=== PATIENT | female | born 2000 | race Caucasian/White ===

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

== ENCOUNTER 2023-01-31 14:51 | Outpatient (REF) | payer MEDICAID, SELFPAY ==
[2023-02-01 08:27] LABS: Syphilis Screen Nonreactive (Nonreactive)
[2023-02-01 08:43] LABS: ~HepC Num1 0.16 S/CO (0.00-0.79); ~Hepatitis C Antibody Nonreactive (Nonreactive)
[2023-02-01 08:45] LABS: HIV AB/AG Nonreactive (Nonreactive); HIV Num 1 0.06 S/CO (0.00-0.99)
== END 2023-01-31 14:52 | disposition home or self-care (01) ==
LOC: HO.HHCL 14:51
PROVIDERS: Visit Provider Advanced Practice Midwife
DX: Z11.4 Encounter for screening for human immunodeficiency virus [HIV] (principal); Z11.3 Encounter for screening for infections with a predominantly sexual mode of transmission
CPT/HCPCS: 36415; 86780; 86803; 87389

== ENCOUNTER 2023-07-17 13:52 | Outpatient (REF) | payer MEDICAID, SELFPAY | END 2023-07-17 13:53 | disposition home or self-care (01) | LOC: HO.HHCLNP 13:52 | PROVIDERS: Visit Provider Advanced Practice Midwife | DX: Z01.419 Encounter for gynecological examination (general) (routine) without abnormal findings (principal); Z11.3 Encounter for screening for infections with a predominantly sexual mode of transmission | CPT/HCPCS: 36415; 87491; 87591; 87661; 88142 ==

== ENCOUNTER 2023-10-14 08:32 | Outpatient (REF) | payer MEDICAID, SELFPAY ==
[2023-10-14 11:18] LABS: MANUAL DIFF FLAG NO
[2023-10-14 11:24] LABS: Basophils Percent Auto 0.4 % (0-2); Eosinophils Absolute Auto 0.4 X10*3/uL (0.0-0.4); Eosinophils Percent Auto 7.5 % (0-4); Hematocrit 37.4 % (37.0-47.0); Imm Gran Abs Auto 0.01 X10*3/uL (0.00-0.03); Imm Gran Pct Auto 0.2 % (0.0-0.4); Lymphocytes Absolute Auto 2.1 X10*3/uL (1.2-4.9); Lymphocytes Percent Auto 38.1 % (20-40); Mean Corpuscular HGB Conc 32.1 g/dl (31.0-35.0); Mean Corpuscular Hemoglobin 27.1 pg (27.0-33.0); Mean Corpuscular Volume 84.6 fL (80.0-98.0); Mean Platelet Volume 9.1 fL (9.4-12.3); Monocytes Absolute Auto 0.5 X10*3/uL (0.1-1.2); Monocytes Percent Auto 9.4 % (2-11); Neutrophils Absolute Auto 2.5 x10*3/uL (2.0-8.3); Neutrophils Percent Auto 44.4 % (45-73); Platelet Count 352 X10*3/uL (160-400); Red Blood Count 4.42 X10*6/uL (4.20-5.50); Red Cell Distribution Width 13.2 % (11.0-16.0); White Blood Count 5.6 X10*3/uL (4.8-10.8)
[2023-10-14 11:35] LABS: Estimated Average Glucose 111 mg/dL; Hemoglobin A1c % 5.5 % (<6.0)
[2023-10-14 11:54] LABS: Anion Gap 11 (12-20); Blood Urea Nitrogen 11 mg/dL (9-16); Calcium 9.1 mg/dL (8.4-10.2); Carbon Dioxide 25 mmol/L (22-29); Chloride 109 mmol/L (96-108); Cholesterol 172 mg/dL (<200); Estimated Glomerular Filt Rate > 60; Glucose Random 96 mg/dL (60-115); HDL Cholesterol 42 mg/dL (>40); LDL Cholesterol Calculated 116 mg/dL (<100); Potassium 4.1 mmol/L (3.3-5.1); Sodium 141 mmol/L (135-145); Triglycerides 70 mg/dL (<150)
[2023-10-14 11:58] LABS: TSH reflex Free T4 0.97 uIU/mL (0.32-4.0)
== END 2023-10-14 08:33 | disposition home or self-care (01) ==
LOC: HO.HHCL 08:32
PROVIDERS: Visit Provider Nurse Practitioner
DX: E66.09 Other obesity due to excess calories (principal); Z86.2 Personal history of diseases of the blood and blood-forming organs and certain disorders involving the immune mechanism; Z68.37 Body mass index [BMI] 37.0-37.9, adult
CPT/HCPCS: 36415; 80048; 80061; 83036; 84443; 85025

== ENCOUNTER 2023-12-15 16:20 | Emergency (ER) | payer MEDICAID, SELFPAY ==
--- NOTE | ~2023-12-15 | XR_ITS ---
EXAMINATION: XR LUMBOSACRAL SPINE CLINICAL INFORMATION: Low back pain COMPARISON: None available. TECHNIQUE: Three views of the lumbosacral spine. FINDINGS: Vertebral bodies are well aligned and intervertebral discs are preserved. There is mild dextroscoliosis of lumbar spine pedicles are preserved. Sacroiliac joints are unremarkable. Soft tissues are normal. XR/XR lumbar spine 2-3V IMPRESSION: Mild dextroscoliosis
[2023-12-15 17:05] VITALS: BP 142/85; PULSE 94; RESP 18; TEMP 36.4; O2SAT 95; BMI 39.1
--- NOTE | 2023-12-15 17:15 | ED.GENADULT ---
HPI - General Adult General Chief complaint: Back Pain/Injury Stated complaint: back pain runs down the right leg Time Seen by Provider: 12/16/23 00:22 Source: patient Mode of arrival: ambulatory Limitations: no limitations History of Present Illness ED Provider: Doug Castro NP HPI narrative: Patient is a 23-year-old female presenting to the emergency department with complaint of lower back pain radiating down right leg for the past 3 days. Reports history of similar pain in the past and was seen at [facility] but states she did not have any imaging at that time. She denies any recent falls or other trauma. Does report that she lifts heavy items for work at [employer]. Denies any weakness, numbness, tingling. Denies any saddle anesthesia or bowel or bladder incontinence. Denies fevers. Denies any urinary symptoms. complaint: back pain Onset (ago): day(s) Location: back Radiation: extremity Severity: severe Quality: burning Pain Consistency: constant Relieving factors: none Treatments prior to arrival: NSAID and other (Tylenol) Related Data Previous Rx's ?Medication ?Instructions ?Recorded cyclobenzaprine 5 mg tablet 5 mg PO TID PRN muscle spasm #10 12/16/23 tabs lidocaine 5 % topical patch 1 patch topical DAILY #15 ea 12/16/23 prednisone 20 mg tablet 40 mg (2 x 20 mg) PO DAILY #10 tabs 12/16/23 Allergies Allergy/AdvReac Type Severity Reaction Status Date / Time No Known Allergies Allergy Verified 12/15/23 17:06 [No Known Allergies*] Review of Systems Review of Systems: As per HPI. Yes all other systems are reviewed and are negative Constitutional: Constitutional: Reports as per HPI [facility] Social History Social History (System 07/18/23 @ 11:32 by Aliyah Motta) Smoked in Last 30 Days: No Use of substances other than those prescribed or required for medical reasons: No Advance Directives: No Advance Directives Information Provided: No Physical Exam ED Vital Signs: Vital Signs - 24 hr 12/15/23 17:05 12/16/23 00:31 12/16/23 00:53 Temperature 97.5 F 97.8 F 97.8 F Pulse Rate 94 72 72 Respiratory Rate 18 16 16 Blood Pressure 142/85 H 158/99 H 158/99 H Pulse Oximetry 95 97 97 Oxygen Delivery Method Room Air Room Air Room Air BMI result Body Mass Index 39.1 Vital signs have been reviewed and appear to be correct. Blood pressure normal. Heart rate normal. Respiratory rate normal. Temperature normal. Oxygen saturation normal. Const General: cooperative, healthy appearing and no acute distress Orientation/consciousness: oriented to person, oriented to place, oriented to time and patient oriented x3 Limitations: no limitations HENMT Head: Yes normocephalic and Yes atraumatic Ears: external ears normal General nose exam: Normal external nose present Face and sinus: Yes face symmetric Mouth: oropharynx normal and moist mucous membranes Throat: Yes uvula midline Eyes Pupils: Equal, round and reactive pupils present Neck Neck: Yes normal visual inspection, Yes no meningeal signs and Yes supple Resp Effort & Inspection: normal respiratory effort and able to speak in complete sentences Auscultation: clear to auscultation bilaterally Cardio Rate: regular rate Rhythm: regular rhythm Heart sounds: S1 normal heart sound present and S2 normal heart sound present GI Palpation (GI): Soft to palpation and nontender Auscultation: normoactive bowel sounds General: Yes no CVA tenderness Back/Spine/Pelvis Back: no CVA tenderness Thoracic/Lumbar Spine: thoracic and lumbar spine normal to inspection, thoraco-lumbar ROM normal, straight leg raise negative bilaterally, pain with thoraco-lumbar ROM, paraspinal muscle tenderness on the right in the upper lumbar and in the mid lumbar, No thoracic spinal tenderness and No lumbar spinal tenderness Skin General skin exam: elasticity normal and turgor normal Neuro General: oriented to person, oriented to place, oriented to time, patient oriented x3, gait normal, tone normal, moves all extremities, Normal light touch and pain sensation, no meningeal signs, no focal motor deficits, CN's II-XI intact bilaterally and deep tendon reflexes 2+ bilaterally Cranial nerves: Yes Equal, round and reactive pupils present Cognition (Neuro): normal cognition Extrem General: Yes full ROM, Yes no pedal edema and Yes no calf tenderness Right lower extremity: normal to inspection, full ROM and normal capillary refill Left lower extremity: normal to inspection, full ROM and normal capillary refill Psych Mental Status: mental status grossly normal Affect: normal affect Thought process: Normal thought process present Course Course Course Narrative: RME: Done by STEPHANIE Hall 23 yold female presents to ED for for low back pain radiating down right back. Patient denies any flank pain, nausea, vomiting, fever, chills or any genitourinary symptoms. Patient states no trauma. X-ray ordered Medications Administered Discontinued Medications Generic Name Dose Route Start Last Admin Trade Name Mary Jo PRN Reason Stop Dose Admin Cyclobenzaprine HCl 10 mg 12/16/23 00:38 12/16/23 00:47 Cyclobenzaprine Hcl 10 Mg Tablet PO 12/16/23 00:39 10 mg ONCE ONE Administration Prednisone 40 mg 12/16/23 00:38 12/16/23 00:47 Prednisone 20 Mg Tablet PO 12/16/23 00:39 40 mg ONCE ONE Administration Medical Decision Making Medical Decision Making MDM Narrative: Patient is a 23-year-old female presenting to the emergency department with complaint of lower back pain radiating down right leg for the past 3 days. On exam patient is awake, A+Ox3, VS WNL, afebrile, normal neurological exam without focal deficits, physical exam findings as above. Given reported symptoms and physical exam findings, initial differential includes lumbar strain, lumbar radiculopathy, disc herniation, spinal stenosis, spondylosis. Less likely vertebral fracture. Do not suspect malignancy/mass, SEA, cauda equina/cord compression. X-ray notable for mild dextroscoliosis. My interpretation is in agreement with the radiologist's interpretation. Will treat for lumbar radiculopathy with short course of prednisone, cyclobenzaprine, lidocaine patches. Advised patient to continue alternating Tylenol and ibuprofen. Patient reports she has follow-up appointment with PCP on Saturday. Return precautions discussed at bedside. Patient verbalized understanding of and agreement with plan. Differential Diagnosis Differential Diagnoses: The differential diagnosis associated with the presentation includes As per MDM. Independent Interpretation I performed an independent interpretation of an: Plain X-Ray Interpretation: Mild dextrscoliosis Radiology Impression Discussion of test interpretation with radiology: I have reviewed the radiologist's reading. Radiologist Impression: XR/XR lumbar spine 2-3V IMPRESSION: Mild dextroscoliosis External Record Review External record reviewed: Inpatient record, Office record and Outpatient record Prescription Management I considered prescription management with: Pain Medication and Other Discharge Plan Discharge Clinical Impression: Lumbar radiculopathy Patient Disposition: Home, Self-Care Instructions: Lumbar Radiculopathy (ED) Additional Instructions: You were evaluated in the emergency department today for back pain. Your evaluation did not show signs of medical conditions requiring emergent intervention at this time. We recommended that you use ibuprofen or Tylenol per package directions every 6 hours as needed for pain. If necessary, you can alternate these medications so that you take one medication every 3 hours. For instance, at noon take ibuprofen, then at 3:00 p.m. take Tylenol, then at 6:00 p.m. take ibuprofen. You have been prescribed prednisone which is a steroid to decrease inflammation. You have been prescribed a muscle relaxer which you may take every 8 hours as needed for spasms. You have been prescribed 5% topical lidocaine patches which you can wear for up to 12 hours in a 24 hour period. Do not apply heat directly over the patches. Please schedule an appointment for follow-up with your primary care physician this week for further evaluation of your symptoms. Return to the emergency department if you experience worsening back pain, difficulty walking, fevers, numbness, tingling, incontinence, groin numbness or tingling, or any other concerning symptoms. Prescriptions: New cyclobenzaprine 5 mg tablet 5 mg PO TID PRN (Reason: muscle spasm) Qty: 10 0RF prednisone 20 mg tablet 40 mg PO DAILY Qty: 10 0RF lidocaine 5 % adhesive patch,medicated 1 patch topical DAILY Qty: 15 0RF Rx Instructions: leave on most painful area for up to 12 hrs Stand Alone Forms: Work/School Release Interventions: ED Discharge Assessment Last Done: 12/16/23 00:53 Discharge Date/Time: 12/16/23 00:54 Print Language: Moldovan
[2023-12-16 00:31] VITALS: BP 158/99; PULSE 72; RESP 16; TEMP 36.6; O2SAT 97
[2023-12-16] MEDS: predniSONE 20 MG TABLET 40 MG PO (00:47)
[2023-12-16] MEDS: Cyclobenzaprine HCl 10 MG TABLET PO (00:47)
[2023-12-16 00:53] VITALS: BP 158/99; PULSE 72; RESP 16; TEMP 36.6; O2SAT 97
== END 2023-12-16 00:54 | disposition home or self-care (01) ==
PROVIDERS: Emergency Provider Emergency Medicine; PCP Pediatrics
DX: M54.16 Radiculopathy, lumbar region (principal); M54.50 Low back pain, unspecified
CPT/HCPCS: 72100; 99283; 99284

== ENCOUNTER 2023-12-19 06:05 | Emergency (ER) | payer MEDICAID, SELFPAY ==
[2023-12-19 06:08] VITALS: BP 140/96; PULSE 96; RESP 20; TEMP 36.1; O2SAT 100; BMI 36.5
--- NOTE | 2023-12-19 07:54 | ED_ITS ---
HPI - Back Pain/Injury General Chief Complaint: Back Pain/Injury Stated Complaint: back pain Time Seen by Provider: 12/19/23 07:15 Source: patient Mode of arrival: ambulatory Limitations: no limitations History of Present Illness ED Provider: Dr. Todd Christiansen HPI Narrative: 23 year old female works at [employer] does lift heavy items seen here a few days ago for back pain sent home on cyclobenzaprine prednisone lidocaine comes back complaining of continued back pain denies any falls or injuries she has no neurosurgical symptoms she has not lost control bowel or bladder she has no back pain red flags. Mom states she called her PCP who told her to come to the ER for pain control. I explained we don't typically don't oupatient pain control explaining the [employer] and concerns of getting prescriptions from multiple prescribers and the side effects. I will give her dose of morphine here with toradol and tylenol. Explained to avoid driving and to only use the cyclobenzaprine at night. Related Data Previous Rx's ?Medication ?Instructions ?Recorded cyclobenzaprine 5 mg tablet 5 mg PO TID PRN muscle spasm #10 12/16/23 tabs lidocaine 5 % topical patch 1 patch topical DAILY #15 ea 12/16/23 prednisone 20 mg tablet 40 mg (2 x 20 mg) PO DAILY #10 tabs 12/16/23 indomethacin 25 mg capsule 25 mg PO BID back pain #60 caps 12/19/23 Allergies Allergy/AdvReac Type Severity Reaction Status Date / Time No Known Allergies Allergy Verified 12/19/23 06:09 [No Known Allergies*] Review of Systems Review of Systems: Review of systems: General: Patient denies any fever chills recent illness or falls Musculoskeletal: back pain denies body aches or other injuries HEENT: denies headache, runny nose, ear pain Respiratory: denies shortness of breath, cough Cardiovascular: no chest pain or palpitations : denies dysuria, frequency Abdomen: no nausea vomiting denies abdominal pain Extremities: no swelling, no pain Skin: no diaphoresis Yes all other systems are reviewed and are negative Physical Exam Vital Signs: Vital Signs: Last Vital Signs Temp 97 F 12/19/23 06:08 Pulse 96 12/19/23 06:08 Resp 20 12/19/23 06:08 BP 140/96 H 12/19/23 06:08 Pulse Ox 100 12/19/23 06:08 O2 Del Method Room Air 12/19/23 06:08 BMI result Body Mass Index 36.5 Neurological exam: CN II- XII tested. Patient is alert and oriented to person place and time. Patient has no dysphagia or dysarthia, denies good vision in all four vision rodriguez no nystagmus on exam, good strength to upper and lower extremities with normal reflexes to brachioradialis, wrist, patella and achilles. Negative romberg, good finger to nose and heel to mcclellan. General: Well-appearing well-nourished in no signs of distress HEENT: Normocephalic atraumatic Neck: No signs of JVD, no masses no tenderness or lymphadenopathy Cardiovascular: Regular rate and rhythm Respiratory: Clear to auscultation bilaterally Abdomen: Soft nontender no masses Extremities: Normal pedal pulses no signs of edema Skin: Dry warm no rashes Back: No tenderness full ROM Medical Decision Making Medical Decision Making MDM Narrative: Patient has normal pulses normal strength and reflexes she looks otherwise well I do not think she needs neuroimaging at this time I do think it is safe for her to home continue prednisone I will give her a work note and have her follow up with her primary care doctor. Differential Diagnosis Differential Diagnoses: The differential diagnosis associated with the presentation includes Eye pain back strain lumbar radiculopathy Admission/Observation Consideration of admission/observation: Escalation of care including admission/observation considered Discharge Plan Discharge Clinical Impression: Lumbar radiculopathy Patient Disposition: Home, Self-Care Instructions: Lumbar Radiculopathy (ED), Lower Back Exercises (ED) Additional Instructions: You were seen in the ER for back pain You have a normal exam and were shown some exercises to help with your pain. You can also try the indomethacin that was prescribed for pain. You were given morphine, toradal and tylenol here as well for pain. Please call to follow up with your doctor. Prescriptions: New indomethacin 25 mg capsule 25 mg PO BID Qty: 60 0RF Rx Instructions: administer with food or milk can take 1 to 2 tabs No Action cyclobenzaprine 5 mg tablet 5 mg PO TID PRN (Reason: muscle spasm) Qty: 10 0RF prednisone 20 mg tablet 40 mg PO DAILY Qty: 10 0RF lidocaine 5 % adhesive patch,medicated 1 patch topical DAILY Qty: 15 0RF Rx Instructions: leave on most painful area for up to 12 hrs Stand Alone Forms: Work/School Release Print Language: Nigerian
--- NOTE | 2023-12-19 08:03 | PC.NURSE ---
Pt reports lower back pain since July, worsening. Reports she has hx of scoliosis. Pain is 10/10, aching and spasms, radiates down right leg. Pt denies fall or recent injuries. Reports she was here Saturday for same complaints and pain was not relieved by meds she got. Alert and oriented, breathing even and unlabored, skin warm and dry. Pt restless, reports standing improves the pain.
[2023-12-19] MEDS: Morphine Sulfate Immed Release 15 MG TABLET PO (08:10)
[2023-12-19 08:12] VITALS: BP 133/85; PULSE 94; RESP 16; TEMP 37.2; O2SAT 99
[2023-12-19] MEDS: Acetaminophen 325 MG TABLET 650 MG PO (08:14)
[2023-12-19] MEDS: Ketorolac Tromethamine 30 MG/ML VIAL 15 MG IM (08:15)
[2023-12-19 08:57] VITALS: BP 133/85; PULSE 94; RESP 16; TEMP 37.2; O2SAT 99
== END 2023-12-19 08:58 | disposition home or self-care (01) ==
PROVIDERS: Emergency Provider Student in an Organized Health Care Education/Training Program; PCP Pediatrics
DX: M54.16 Radiculopathy, lumbar region (principal); Z79.899 Other long term (current) drug therapy
CPT/HCPCS: 96372; 99284; J1885

== ENCOUNTER 2024-02-05 12:00 | Outpatient (REF) | payer MEDICAID, SELFPAY ==
[2024-02-05 13:21] LABS: MANUAL DIFF FLAG NO
[2024-02-05 13:26] LABS: Basophils Percent Auto 0.2 % (0-2); Eosinophils Absolute Auto 0.4 X10*3/uL (0.0-0.4); Eosinophils Percent Auto 5.3 % (0-4); Hematocrit 40.7 % (37.0-47.0); Hemoglobin 13.5 g/dl (12.0-16.0); Imm Gran Abs Auto 0.02 X10*3/uL (0.00-0.03); Imm Gran Pct Auto 0.2 % (0.0-0.4); Lymphocytes Percent Auto 24.3 % (20-40); Mean Corpuscular HGB Conc 33.2 g/dl (31.0-35.0); Mean Corpuscular Hemoglobin 27.9 pg (27.0-33.0); Mean Corpuscular Volume 84.1 fL (80.0-98.0); Mean Platelet Volume 9.2 fL (9.4-12.3); Monocytes Absolute Auto 0.5 X10*3/uL (0.1-1.2); Monocytes Percent Auto 5.7 % (2-11); Neutrophils Absolute Auto 5.2 x10*3/uL (2.0-8.3); Neutrophils Percent Auto 64.3 % (45-73); Platelet Count 420 X10*3/uL (160-400); Red Blood Count 4.84 X10*6/uL (4.20-5.50); Red Cell Distribution Width 13.7 % (11.0-16.0); White Blood Count 8.1 X10*3/uL (4.8-10.8)
[2024-02-05 13:45] LABS: INTERNATIONAL NORM RATIO 0.9 (0.9-1.1); Prothrombin Time 11.3 SEC (11.1-13.3)
[2024-02-05 13:46] LABS: Alanine Aminotransferase 24 U/L (0-31); Albumin Level 4.1 g/dL (3.5-5.0); Alkaline Phosphatase 73 U/L (39-117); Aspartate Amino Transferase 21 U/L (5-31); Bilirubin Direct < 0.2 mg/dL (0.0-0.5); Bilirubin Total 0.2 mg/dL (0.0-1.0); Total Protein 8.2 g/dL (6.5-8.0)
[2024-02-05 13:48] LABS: Partial Thromboplastin Time 31.3 SEC (26.0-36.8)
== END 2024-02-05 12:01 | disposition home or self-care (01) ==
LOC: HO.HHCL 12:00
PROVIDERS: Visit Provider Nurse Practitioner
DX: R23.3 Spontaneous ecchymoses (principal); E28.2 Polycystic ovarian syndrome
CPT/HCPCS: 36415; 80076; 85025; 85610; 85730

== ENCOUNTER 2024-02-28 10:51 | Outpatient (REF) | payer MEDICAID, SELFPAY ==
--- NOTE | ~2024-02-28 | US_ITS ---
EXAMINATION: US PELVIC COMPLETE WITH TV CLINICAL INFORMATION: Dysmenorrhea COMPARISON: None available. TECHNIQUE: Real-time transabdominal and transvaginal ultrasound scanning. FINDINGS: Transabdominal and transvaginal ultrasound examination of the pelvis were performed. Uterus: Anteverted; measuring 6.8 cm in length, 3.3 cm in AP diameter and 4.5 cm in width. Uterine cervix measures 3.4 cm in length. Echotexture: normal sonographic appearance. Nabothian cysts are seen in the uterine cervix. Endometrial Thickness: 0.8 cm. Right ovary: 3.2 x 1.6 x 1.4 cm (SAG x AP x TRV), calculated volume of 3.8 mL, with normal echotexture. Left ovary: 3.9 x 1.9 x 2.0 cm (SAG x AP x TRV), calculated volume of 7.8 mL, with normal echotexture. No free fluid is present. Limited view of the urinary bladder shows no abnormality. US/US pelvic and transvaginal IMPRESSION: 1. Limited pelvic ultrasound examination due to patient's body habitus. 2. Normal sonographic appearance of uterus. 3. Normal sonographic appearance of bilateral ovaries. 4. No abnormal pelvic fluid collection is seen. Electronically signed by: Michael Hernandez MD 03/06/2024 09:56 AM EDT
== END 2024-02-28 10:52 | disposition home or self-care (01) ==
LOC: HO.US 10:51
PROVIDERS: PCP Nurse Practitioner; Visit Provider Nurse Practitioner
DX: E28.2 Polycystic ovarian syndrome (principal)
CPT/HCPCS: 76830; 76856

== ENCOUNTER 2024-05-01 10:34 | Outpatient (REF) | payer MEDICAID, SELFPAY ==
[2024-05-02 22:39] LABS: Follicle Stimulating Hormone 6.6 mIU/mL; Prolactin 7.9 ng/mL
[2024-05-07 13:23] LABS: Testosterone, Free 9.3 pg/mL (0.1-6.4); Testosterone, Total 62 ng/dL (2-45)
== END 2024-05-01 10:35 | disposition home or self-care (01) ==
LOC: HO.HHCL 10:34
PROVIDERS: Visit Provider Nurse Practitioner
DX: N91.4 Secondary oligomenorrhea (principal)
CPT/HCPCS: 36415; 83001; 83498; 84146; 84402; 84403

== ENCOUNTER 2024-07-11 06:57 | Emergency (ER) | payer MEDICAID, SELFPAY ==
--- NOTE | ~2024-07-11 | XR_ITS ---
CLINICAL HISTORY: cough 2 view chest x-ray Comparison: None Findings: The lungs are clear. Heart size is normal. No acute fracture. IMPRESSION: 1. No acute findings. This document has been electronically signed by: Emiliano Sebastian MD on 07/11/2024 07:32:25
[2024-07-11 07:03] VITALS: BP 125/79; PULSE 99; RESP 20; TEMP 36.3; O2SAT 96; BMI 38.8
--- NOTE | 2024-07-11 07:14 | PC.NURSE ---
Patient reports nasal congestion, cough, and chest tightness since . Stats mother has also been sick with bronchitis
[2024-07-11 07:45] LABS: IDNOW Serial# 58CA691E; Strep A Nucleic Acid Negative (Negative)
--- NOTE | 2024-07-11 08:17 | ED.URI ---
HPI - URI/Sore Throat General Chief Complaint: Upper Respiratory Symptoms Stated Complaint: flu like Time Seen by Provider: 07/11/24 07:33 Source: patient Mode of arrival: ambulatory Limitations: no limitations History of Present Illness ED Provider: Elida Banuelos NP HPI Narrative: Patient is a 24-year-old female who presents emergency department for evaluation of 2 days with cough, intermittent shortness of breath and chest tightness, sore throat. Denies any known sick contacts. Denies fevers, chills, headache, dizziness, neck pain, neck stiffness, nausea, vomiting, abdominal pain, numbness or tingling of the extremities, genitourinary symptoms. Related Data Previous Rx's ?Medication ?Instructions ?Recorded cyclobenzaprine 5 mg tablet 5 mg PO TID PRN muscle spasm #10 12/16/23 tabs lidocaine 5 % topical patch 1 patch topical DAILY #15 ea 12/16/23 prednisone 20 mg tablet 40 mg (2 x 20 mg) PO DAILY #10 tabs 12/16/23 indomethacin 25 mg capsule 25 mg PO BID back pain #60 caps 12/19/23 Allergies Allergy/AdvReac Type Severity Reaction Status Date / Time No Known Allergies Allergy Verified 07/11/24 07:07 [No Known Allergies*] Review of Systems Review of Systems: Yes all other systems are reviewed and are negative PMFSH Past Medical History Attestation statement: The following information was validated with the patient. Source: old records reviewed Social History Social History (System 07/18/23 @ 11:32 by Aliyah Motta) Advance Directives: No Advance Directives Information Provided: Yes Do you have a plan to hurt others: No Plan Physical Exam Vital Signs: Vital Signs: Last Vital Signs Temp 97.3 F 07/11/24 07:03 Pulse 99 07/11/24 07:03 Resp 20 07/11/24 07:03 BP 125/79 07/11/24 07:03 Pulse Ox 96 07/11/24 07:03 O2 Del Method Room Air 07/11/24 07:03 BMI result Body Mass Index 38.8 Appearance: Alert.?Oriented to person, place and time. No acute distress.?Normal affect. Eyes: Pupils equal, round and reactive to light.? ENT: TM normal bilaterally. Pharynx normal.??Uvula midline. No trismus. No drooling. Nasal congestion. Neck: Normal inspection.? Neck supple.??No cervical adenopathy CVS: Heart sounds normal. Normal heart rate and rhythm.? Pulses normal.?? Respiratory: No respiratory distress.? Lung sounds diminished bilaterally? Abdomen: Soft and non-tender. Normoactive bowel sounds. Skin: Skin warm and dry.? Normal skin color.? ? Extremities: No lower extremity edema.? Neuro: Moves all extremities spontaneously. Sensation intact bilaterally. No motor deficits. Ambulates with normal steady gait. Medications Administered Discontinued Medications Generic Name Dose Route Start Last Admin Trade Name Mary Jo PRN Reason Stop Dose Admin Albuterol Sulfate 2 puff 07/11/24 08:24 12 08:45 Albuterol Sulfate 90 Mcg 8 Gm Inhaler INHALE 07/11/24 08:25 2 puff ONCE ONE Administration Medical Decision Making Medical Decision Making [facility] Narrative: Patient is a 24-year-old female, presenting for evaluation of upper respiratory symptoms. COVID-19/influenza/RSV testing is negative. Group a strep testing is negative, exam not consistent with [employer]. On auscultation of her lungs they are diminished bilaterally though this might be in part due to body habitus. However she was given 2 puffs of a albuterol inhaler in the emergency department and felt improvement in the tightness/shortness of breath she has been experiencing. CXR was obtained is without any evidence of pneumonia. I suspect she likely has a viral upper respiratory infection. Wells score negative, unlikely pulmonary embolism, no risk factors for ACS. Well-appearing, nontoxic, afebrile, no tachycardia or tachypnea/hypoxia. Speaking clear full sentences, ambulatory with steady gait. Discussed conservative treatment including rest, hydration, Tylenol/ibuprofen as needed for fever and body aches, saline nasal spray, humidifier, knen-pit-nuvaogp cold medication. Advised to follow-up with primary care provider as needed, discussed reasons to return back to the emergency department. All questions were answered. Patient discharged home in stable condition. Differential Diagnosis Differential Diagnoses: The differential diagnosis associated with the presentation includes ( See narrative above) Admission/Observation Consideration of admission/observation: Escalation of care including admission/observation considered ( see narrative above) Lab Data [facility] Lab Attestation statement: I reviewed the patient's lab results. ( see narrative above) Labs: Lab Results 07/11/24 Range/Units 07:31 Influenza Type A (PCR) NEGATIVE (Negative) Influenza Type B (PCR) NEGATIVE (Negative) RSV RNA Qual (PCR) NEGATIVE (Negative) SARS-CoV-2 RNA (RT-PCR) NEGATIVE (Negative) S. pyogenes GrpA RAKESH Negative (Negative) Independent Interpretation I performed an independent interpretation of an: Plain X-Ray (No consolidation or infiltrate) Radiology Impression Discussion of test interpretation with radiology: I have reviewed the radiologist's reading. Radiologist Impression: Findings: The lungs are clear. Heart size is normal. No acute fracture. IMPRESSION: 1. No acute findings. Independent Historian Clinical information obtained from an independent historian. History obtained from or confirmed by: Parent Prescription Management I considered prescription management with: Pain Medication ( acetaminophen/ibuprofen) and Antibiotic (Suspect viral would defer antibiotics at this time) Discharge Plan Discharge Clinical Impression: Upper respiratory infection Patient Disposition: Home, Self-Care Instructions: Upper Respiratory Infection (ED) Additional Instructions: Be sure to rest, stay well hydrated drinking plenty of fluids, eat small frequent meals. Tylenol/ibuprofen can be used as needed for fever/pain. [id number] cold medications may be helpful as well for symptoms. Saline nasal spray, humidifier may be helpful for nasal congestion. You may return to the emergency department with any new or worsening symptoms or concerns. Follow-up with your primary care provider as needed. Should remain out of school/ work until symptoms have resolved and have been without a fever for 24 hours without the use of Tylenol or ibuprofen. You were given an albuterol inhaler in the emergency department you may take 2 puffs every 4-6 hours as needed for shortness of breath or difficulty breathing. Prescriptions: No Action indomethacin 25 mg capsule 25 mg PO BID Qty: 60 0RF Rx Instructions: administer with food or milk can take 1 to 2 tabs cyclobenzaprine 5 mg tablet 5 mg PO TID PRN (Reason: muscle spasm) Qty: 10 0RF prednisone 20 mg tablet 40 mg PO DAILY Qty: 10 0RF lidocaine 5 % adhesive patch,medicated 1 patch topical DAILY Qty: 15 0RF Rx Instructions: leave on most painful area for up to 12 hrs Referrals: Physician,Unknown J [Primary Care Provider] - Print Language: Sami
[2024-07-11 08:28] LABS: Influenza A PCR NEGATIVE (Negative); Influenza B PCR NEGATIVE (Negative); Resp Syncy Virus RNA Qual PCR NEGATIVE (Negative); SARS COV2 PCR INHOUSE NEGATIVE (Negative)
[2024-07-11] MEDS: Albuterol Sulfate 90 MCG 8 GM INHALER 2 PUFF INHALE (08:45)
[2024-07-11 09:45] VITALS: BP 125/99; PULSE 99; RESP 18; TEMP 36.3; O2SAT 98
== END 2024-07-11 09:46 | disposition home or self-care (01) ==
PROVIDERS: Emergency Provider Emergency Medicine
DX: J06.9 Acute upper respiratory infection, unspecified (principal); J02.9 Acute pharyngitis, unspecified; R05.9 Cough, unspecified; Z03.818 Encounter for observation for suspected exposure to other biological agents ruled out
CPT/HCPCS: 0241U; 71046; 87651; 99283; 99284

== ENCOUNTER → 2024-07-11 07:09 | Outpatient (BNV) | payer MEDICAID, SELFPAY | PROVIDERS: Visit Provider Specialist | DX: R05.9 Cough, unspecified (principal) | CPT/HCPCS: 71046 ==

== ENCOUNTER 2025-02-01 10:33 | Outpatient (REF) | payer MEDICAID, SELFPAY ==
[2025-02-01 11:12] LABS: MANUAL DIFF FLAG NO
[2025-02-01 11:23] LABS: Hematocrit 39.6 % (37.0-47.0); Hemoglobin 12.8 g/dl (12.0-16.0); Imm Gran Abs Auto 0.01 X10*3/uL (0.00-0.03); Imm Gran Pct Auto 0.2 % (0.0-0.4); Lymphocytes Absolute Auto 2.3 X10*3/uL (1.2-4.9); Mean Corpuscular HGB Conc 32.3 g/dl (31.0-35.0); Mean Corpuscular Hemoglobin 28.1 pg (27.0-33.0); Mean Corpuscular Volume 86.8 fL (80.0-98.0); NRBC Abs Auto 0.000 X10*3/uL (0.0-0.012); NRBC Pct Auto 0.0 /100WBC (0.0-0.2); Platelet Count 374 X10*3/uL (160-400); Red Blood Count 4.56 X10*6/uL (4.20-5.50); White Blood Count 6.7 X10*3/uL (4.8-10.8)
[2025-02-01 11:33] LABS: Hemoglobin A1C 129.8911 umol/L; Total Hemoglobin (HGBA1C) 3402.8725 umol/L
--- OUTSIDE RECORDS SUMMARY | 2025-02-01 11:35 | XMS_ITS | Clinical Summary ---
Author Organization [facility] it Address [address] [place] [address] Care Team Providers Care Digital Manager Name Role Phone Unavailable Primary Care Provider Unavailabl e Social History Tobacco Use Types Packs/Day Years Used Date Smoking Tobacco: Never Assessed Comments Unknown Sex and Gender Information Value Date Recorded Sex Assigned at Not on file Legal Sex Female 7:32 PM EST Gender Identity Not on file Sexual Orientation Not on file Plan of Treatment Health Maintenance Due Date Last Done Comments Gonorrhea/Chlamydia Screening 2002 HPV Vaccines (1 - 3-dose series) 2017 Meningococcal B Vaccine (1 o f 2 - Standard) 2018 DTaP,Tdap,and Td Vaccines (1 - Tdap) 2021 Hepatitis B Vaccines (1 of 3 - 19+ 3-dose series) 2021 HIV Screening 06/16/2022 Hepatitis C Screening 06/16/2022 Social Influencers of Health Screening 06/16/2022 Cervical Cancer Screening: P ap Smear 2023 COVID-19 Vaccine (1 - 2023-2 5 season) 2024 Depression Screening 07/15/2024 Influenza Vaccine (#1) 2025 HIB Vaccines Aged Out No longer eligi ble based on patient's age to complete this topic Hepatitis A Vaccines Aged Out No long er eligible based on patient's age to complete this topic IPV Vaccines Aged Out No longer eligi ble based on patient's age to complete this topic MMR Vaccines Aged Out No longer eligi ble based on patient's age to complete this topic Meningococcal ACWY Vaccine Aged Out N o longer eligible based on patient's age to complete this topic Pneumococcal Vaccine: Pediat rics (0 to 5 Years) and At-Risk Patients (6 to 49 Years) Aged Out No longer eligible b ased on patient's age to complete this topic RSV Immunization Patients Un jarocho 20 months Aged Out No longer eligible b ased on patient's age to complete this topic Varicella Vaccines Aged Out No longer eligible based on patient's age to complete this topic
--- OUTSIDE RECORDS SUMMARY | 2025-02-01 11:35 | XMS_ITS | Encounter Summary ---
Author Organization [employer] Address [address] [facility] [address] [place] [address] Care Team Providers Care Seismic Plotter Name Role Phone Dion Lexie ELLER Primary Care Provider [phone] Reason for Visit * Reason Comments Med Refill Encounter Details Date Type Department Care Team (Late st Contact Info) Description 09/08/2023 Refill [facility] [address] [place], [place] [id number] Joanna Pal CNM [address] [place] [address] Dysmenorrhea Social History Tobacco Use Types Packs/Day Years Used Date Smoking Tobacco: Never Smokeless Tobacco: Never Alcohol Use Standard Drinks/Week Comments Never 0 (1 standard drink = 0.6 oz pur e alcohol) Depression Answer Date Recorded Patient Health Questionnaire-9 Score 20 01/03/2023 Housing Stability Answer Date Recorded What is your housing situation today? I have guanaco stoll [address] you li ve. Do you have problems with any of the following? None of the above 2023 Food Insecurity Answer Date Recorded Within the past 12 months, y ou worried that your food would run out before you got money to buy more: Never True 2023 Within the past 12 months,th e food you bought just didn't last and you didn't have enough money to get more: Never True 12/2022 Transportation Answer Date Recorded In the past 12 months, has l ack of transportation kept you from medical appts, meetings, work or from getting things needed for daily living? No 2023 Utilities Answer Date Recorded In the past 12 months, has t he electric, gas, oil or water company threatened to shut off services in your home? No 2023 Depression Answer Date Recorded Patient Health Questionnaire-2 Score 6 01/03/2023 Comments No Sex and Gender Information Value Date Recorded Sex Assigned at Female 05/14/2022 10:19 AM EDT Legal Sex Female 10:19 AM EDT Gender Identity Female 05/14/2022 10:19 AM EDT Sexual Orientation Straight 05/14/2022 10 :19 AM EDT documented as of this encounter Plan of Treatment Upcoming Encounters Date Type Department Care Team (Late st Contact Info) Description 02/26/2025 9:00 AM EDT Telemedicine [facility] [address] [place] [address] Lexie Ashley NP [address] [place] [address] 03/30/2025 3:30 PM EDT Office Visit [facility] [address] [place] [address] Jhoan, Carmen, OD [address] [place] [address] documented as of this encounter Visit Diagnoses Diagnosis Dysmenorrhea documented in this encounter Additional Health Concerns Assessment Noted Time PHQ-9 Depression Total Score: 20 023 11:33 AM EDT documented as of this encounter Care Teams Seismic Plotter Relationship Specialty Start Date End Date Lexie Ashley NP [address] [place] [address] PCP - General Family Medicine 04/19/23 documented as of this encounter
[2025-02-01 11:51] LABS: Anion Gap 10 (12-20); Blood Urea Nitrogen 11 mg/dL (9-16); Calcium 8.7 mg/dL (8.4-10.2); Carbon Dioxide 26 mmol/L (22-29); Chloride 108 mmol/L (96-108); Cholesterol 174 mg/dL (<200); Estimated Glomerular Filt Rate > 60; HDL Cholesterol 41 mg/dL (>40); Potassium 4.4 mmol/L (3.3-5.1); Sodium 140 mmol/L (135-145); Triglycerides 66 mg/dL (<150)
== END 2025-02-01 10:34 | disposition home or self-care (01) ==
LOC: HO.HHCL 10:33
PROVIDERS: PCP Nurse Practitioner; Visit Provider Nurse Practitioner
DX: E66.812 Obesity, class 2 (principal); E66.09 Other obesity due to excess calories; Z68.38 Body mass index [BMI] 38.0-38.9, adult; Z13.9 Encounter for screening, unspecified
CPT/HCPCS: 36415; 80048; 80061; 83036; 85025

== ENCOUNTER 2025-04-03 06:56 | Emergency (ER) | payer MEDICAID, SELFPAY ==
[2025-04-03 07:01] VITALS: BP 129/79; PULSE 96; RESP 18; TEMP 36.6; O2SAT 98; BMI 38.3
--- NOTE | 2025-04-03 07:49 | ED_ITS ---
HPI - URI/Sore Throat General Chief Complaint: Upper Respiratory Symptoms Stated Complaint: flu like Time Seen by Provider: 04/03/25 07:23 Source: patient Mode of arrival: ambulatory Limitations: no limitations History of Present Illness ED Provider: DR. Grant HPI Narrative: 24-year-old female came in for evaluation of upper respiratory symptoms, + nasal discharge, +nasal congestion, sore throat, generalized body ache, sinus pressure, coughing. Related Data Previous Rx's ?Medication ?Instructions ?Recorded cyclobenzaprine 5 mg tablet 5 mg PO TID PRN muscle spa sm #10 12/16/23 tabs lidocaine 5 % topical patch 1 patch topical DAILY #15 ea 12/16/23 prednisone 20 mg tablet 40 mg (2 x 20 mg) PO DAILY # 10 tabs 12/16/23 indomethacin 25 mg capsule 25 mg PO BID back pain #60 caps 12/19/23 azithromycin 250 mg tablet See Rx Instructions PO .COM PLEX #6 04/03/25 (Zithromax Z-Raman) tabs Allergies Allergy/AdvReac Type Severity Reaction Status Date / Time No Known Allergies (No Known Allergy Verified 04/03/25 07:03 Allergies*) Review of Systems Review of Systems: All other systems are reviewed and are negative Constitutional: Reports as per HPI and Reports no additional constitutional complaints Eyes: Reports as per HPI and Reports no additional eye complaints Reports system reviewed and no additional complaints, except as documented Cardiovascular: Reports as per HPI and Reports no additional cardiovascular complaints Respiratory: Reports as per HPI and Reports no additional respiratory complaints Gastrointestinal: Reports as per HPI and Reports no additional gastrointestinal complaints Genitourinary: Reports no additional female genitourinary complaints Musculoskeletal: Reports no additional musculoskeletal complaints Skin/Breast: Reports system reviewed and no additional complaints, except as docu Psychiatric: Reports no additional psychiatric complaints Endocrine: Reports no additional endocrine complaints Hematologic/Lymphatic: Reports no additional hematologic/lymphatic complaints Allergic/Immunologic: Reports no additional allergic/immunologic complaints Reports system reviewed and no additional complaints, except as documented and Reports Abnormal speech present [facility] Social History Social History Do you have a plan to hurt others: No Plan Physical Exam Vital Signs: Vital Signs: Last Vital Signs Temp 97.8 F 04/03/25 07:01 Pulse 96 09/20/25 07:01 Resp 18 04/03/25 07:01 BP 129/79 04/03/25 07:01 Pulse Ox 98 04/03/25 07:01 O2 Del Method Room Air 04/03/25 07:01 BMI result Body Mass Index 38.3 Vital signs have been reviewed and appear to be correct. Blood pressure elevated. Heart rate normal. Respiratory rate normal. Temperature normal. Oxygen saturation normal. Appearance: Alert. Oriented X3. No acute distress. Head: Normal external exam. Normocephalic. Atraumatic. No Serrato signs noted. No raccoon eyes noted Eyes: PERRLA. EOMI. Conjunctiva and sclera normal. Eyelids normal. ENT: TM's Normal. Pharynx normal. Left maxillary sinus tenderness on percussion Moist mucous membranes. No trismus noted. No drooling noted. No muffled voice noted. Neck: Normal inspection. Neck supple. FROM. No adenopathy. Thyroid Normal. No meningeal signs. No neck mass noted. CVS: Normal heart rate and rhythm. Heart sound normal. No murmurs noted. Pulses normal throughout. Respiratory: No respiratory distress. Painless inspiration. Breath sounds normal. No wheezes/rales/rhonchi noted. Chest nontender. No accessory muscle usage noted or decreased air movement noted. Abdomen: Soft and nontender. Bowel sounds normal in all 4 quadrants. No distention noted. No organomegaly noted. No visible injury noted. Back: No CVA tenderness. Full range of motion noted. Skin: Skin warm and dry. Normal skin color. Normal skin turgor. No rashes/lesions/lacerations noted. Extremities: No lower extremity edema. Extremities exhibit normal range of motion. Extremities nontender. Neuro: Oriented X 3. Cranial nerve exam: II-XII are grossly intact No motor deficit. No sensory deficit. Reflexes normal. Course Reevaluation(s) Reevaluation #1: Acute left maxillary sinusitis will start on Z-Raman and follow-up with PCP. Time: 09:00 Medical Decision Making Differential Diagnosis Differential Diagnoses: The differential diagnosis associated with the presentation includes (Upper respiratory infection, acute sinusitis.) Admission/Observation Consideration of admission/observation: Escalation of care including admission/observation considered Lab Data MDM Lab Attestation statement: I reviewed the patient's lab results. Discharge Plan Discharge Clinical Impression: Sinusitis Patient Disposition: Home, Self-Care Instructions: Sinusitis (ED) Prescriptions: New azithromycin [Zithromax Z-Raman] 250 mg tablet See Rx Instructions .ROUTE .COMPLEX Qty: 6 0RF Rx Instructions: For 250 mg dose pack: take 500 mg today (day 1), then 250 mg for 4 days (days 2-5) No Action indomethacin 25 mg capsule 25 mg PO BID Qty: 60 0RF Rx Instructions: administer with food or milk can take 1 to 2 tabs cyclobenzaprine 5 mg tablet 5 mg PO TID PRN (Reason: muscle spasm) Qty: 10 0RF prednisone 20 mg tablet 40 mg PO DAILY Qty: 10 0RF lidocaine 5 % adhesive patch,medicated 1 patch topical DAILY Qty: 15 0RF Rx Instructions: leave on most painful area for up to 12 hrs Print Language: St Helenian
--- OUTSIDE RECORDS SUMMARY | 2025-04-03 08:07 | XMS_ITS | Encounter Summary ---
Author Organization [employer] Address [address] [facility] [address] [place] [address] Care Team Providers Care Contact Assembler Name Role Phone Lexie Ashley NP Primary Care Provider [phone] Encounter Details Date Type Department Care Team ([facility] st Contact Info) Description 02/26/2025 Results Follow-Up [facility] [address] [place] [address] Lexie Ashley NP [address] [place] [address] CBC auto differential, Lipid Panel, Standard, Basic Metabolic Panel, Hemoglobin A1c Social History Tobacco Use Types Packs/Day Years Used Date Smoking Tobacco: Never Smokeless Tobacco: Never Alcohol Use Standard Drinks/Week Comments Never 0 (1 standard drink = 0.6 oz pur e alcohol) Alcohol Answer Date Recorded How often do you have a drink containing alcohol ? 0 01/02/2024 How many drinks containing a lcohol do you have on a typical day when you are drinking? 0 01/02/2024 How often do you have six or more drinks on one occasion? 0 01/02/2024 Depression Answer Date Recorded Patient Health Questionnaire-9 Score 8 09/16/2024 Patient Health Questionnaire-9 Score 8 09/16/2024 Last PHQ-9: Questionnaire Data Not on file 0 09/16/2024 Housing Stability Answer Date Recorded What is [...] Answer Date Recorded Patient Health Questionnaire-2 Score 0 09/16/2024 Internet Access Answer Date Recorded Internet Access Q1 Yes 09/16/2024 Internet Access Q2 Not on file 09/16/2024 Comments No Sex and Gender Information Value Date Recorded Sex Assigned at Female 05/14/2022 10:19 AM EDT Legal Sex Female 10:19 AM EDT Gender Identity Female 05/14/2022 10:19 AM EDT Sexual Orientation Straight 05/14/2022 10 :19 AM EDT documented as of this encounter Plan of Treatment Upcoming Encounters Date Type Department Care Team (Late st Contact Info) Description 07/26/2025 1:00 PM EST Office Visit [facility] OPTOMETRY [address] [place] [address] Carmen Staples, DECLAN [address] [place] [address] documented as of this encounter Visit Diagnoses Not on filedocumented in this encounter Additional Health Concerns Assessment Noted Time PHQ-9 Depression Total Score: 8 09/17/19 25 10:00 AM EST documented as of this encounter Care Teams Contact Assembler Relationship Specialty Start Date End Date Lexie Ashley NP [address] [place] [address] PCP - General Family Medicine 04/19/23 documented as of this encounter
--- OUTSIDE RECORDS SUMMARY | 2025-04-03 08:07 | XMS_ITS | Clinical Summary ---
Author Organization [facility] it Address [address] [place] [address] Care Team Providers Care Job Change Crew Member Name Role Phone Unavailable Primary Care Provider [...] Cervical Cancer Screening: P ap Smear 2023 Depression Screening 07/15/2024 COVID-19 Vaccine (1 - 2023-2 5 season) 2025 Influenza Vaccine (#1) 2025 HIB Vaccines Aged [...]
--- OUTSIDE RECORDS SUMMARY | 2025-04-03 08:07 | XMS_ITS | Encounter Summary ---
Author Organization [employer] Address [address] [facility] [address] [place] [address] Care Team Providers Care Grease Refining Supervisor Name Role Phone Yusefcelina Lexie ELLER Primary Care Provider [phone] Reason for Visit * Reason Comments Med Refill Encounter Details Date Type Department Care Team (Late st Contact Info) Description 09/08/2023 Refill [facility] [address] [place], [place] [phone] Joanna Pal CNM [address] [place] [address] Dysmenorrhea Social History Tobacco Use Types Packs/Day [...] Description 07/26/2025 1:00 PM EST Office Visit [facility] OPTOMET[facility] [address] [place], [place] [phone] Carmen Staples, OD [address] [place] [address] documented as of this encounter Visit Diagnoses Diagnosis Dysmenorrhea documented in this encounter Additional Health Concerns Assessment Noted Time PHQ-9 Depression Total Score: 20 023 11:33 AM EDT documented as of this encounter Care Teams Grease Refining Supervisor Relationship Specialty Start Date End Date Lexie Ashley NP [address] [place] [address] PCP - General Family Medicine 04/19/23 documented as of this encounter
--- OUTSIDE RECORDS SUMMARY | 2025-04-03 08:07 | XMS_ITS | Clinical Summary ---
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 interpreted inconjunction with the patient's clinical presentation,history and other laboratory results. If the results areinconsistent with clinical evidence, additional testing issuggested to confirm the result. 01/31/2023 1:57 PM EDT 01/31/2023 4:09 PM EDT Joanna Kae [facility] BLOOD ORDERABLES Argelia l Result Performing Organization Address [facility] Co de Phone Number [facility] [address] [place] [phone] from Last 3 Months or Most Recently Relevant to Health Maintenance Insurance [facility] C3 HSN PARTIAL Care Teams Press Washer Relationship Specialty Start Date End Date Lexie Ashley NP [address] [place] [phone] PCP - General Family Medicine 04/19/23
--- OUTSIDE RECORDS SUMMARY | 2025-04-03 08:07 | XMS_ITS | Encounter Summary ---
Author Organization [employer] Address [address] [place] [address] [place] [address] Care Team Providers Care Single Stroke Preformer Name Role Phone Brooke Wilder SKIN FITTER Primary Care Provider Lexie Hinojosa NP Primary Care Provider [phone] Reason for Visit * Reason Onset Date Comments Med Refill 04/17/2023 Encounter Details Date Type Department Care Team (Late Contact Info) Description 04/17/2023 Refill [facility] [address] [place], [place] [phone] Brooke Wilder FNP Encounter for surveillance of transdermal patch hormonal contraceptive device; Dysmenorrhea Social History Tobacco Use Types Packs/Day Years Used Date Smoking Tobacco: Never Smokeless Tobacco: Never Alcohol Use Standard Drinks/Week Comments Never 0 (1 standard drink = 0.6 oz pur e alcohol) Depression Answer Date Recorded Patient Health Questionnaire-9 Score 20 01/03/2023 Depression Answer Date Recorded Patient Health Questionnaire-2 [...] Encounters Date Type Department Care Team (Late Contact Info) Description 07/26/2025 1:00 PM EST Office Visit [facility] OPT[facility] [address] [place], [place] [phone] Carmen Staples, OD [address] [place] [address] documented as of this encounter Visit Diagnoses Diagnosis Encounter for surveillance of transdermal patch hormonal contraceptive device Dysmenorrhea documented in this encounter Additional Health Concerns Assessment Noted Time PHQ-9 Depression Total Score: 20 023 11:33 AM EDT documented as of this encounter Care Teams Single Stroke Preformer Relationship Specialty Start Date End Date Brooke Wilder FNP PCP - General Family Medicine 09/06/22 04/18/23 Lexie Ashley NP [address] [place] [phone] PCP - General Family Medicine 04/19/23 documented as of this encounter
--- OUTSIDE RECORDS SUMMARY | 2025-04-03 08:07 | XMS_ITS | Encounter Summary ---
Author Organization [employer] Address [address] [place] [address] [place] [address] Care Team Providers Care Market Research Specialist Name Role Phone Brooke Wilder POLISHER HAND Primary Care Provider Lexie Hinojosa NP Primary Care Provider [phone] Reason for Visit * Reason Onset Date Comments Med Refill 04/11/2023 Encounter Details Date Type Department Care Team ([facility] Contact Info) Description 04/11/2023 Refill [facility] [address] [place], [place] [phone] Brooke Wilder FNP Encounter for surveillance of [...] Description 07/26/2025 1:00 PM EST Office Visit [facility] OPTOMETRY [address] [place], [place] [phone] Carmen Staples, OD [address] [place], [place] [phone] documented as of this encounter Visit Diagnoses Diagnosis Encounter for surveillance of transdermal patch hormonal contraceptive device Dysmenorrhea documented in this encounter Additional Health Concerns Assessment Noted Time PHQ-9 Depression Total Score: 20 023 11:33 AM EDT documented as of this encounter Care Teams Market Research Specialist Relationship Specialty Start Date End Date Brooke Wilder FNP PCP - General Family Medicine 09/06/22 04/18/23 Lexie Ashley NP [address] [place] [phone] PCP - General Family Medicine 04/19/23 documented as of this encounter
--- OUTSIDE RECORDS SUMMARY | 2025-04-03 08:08 | XMS_ITS | Encounter Summary ---
Author Organization [employer] Address [address] [facility] 7 [place] [address] Care Team Providers Care Hydroelectric Production Manager Name Role Phone Lxeie Ashley NP Primary Care Provider Reason for Visit * Reason Onset Date Comments Referral 01/14/2024 Encounter Details Date Type Department Care Team ([facility] st Contact Info) Description 01/14/2024 Telephone [facility] MED[facility]INE [address] [place], [place] [phone] Lexie Ashley NP [address] [place] [address] Referral Social History Tobacco Use Types Packs/Day Years [...] Answer Date Recorded Patient Health Questionnaire-9 Score 13 10/11/2023 Patient Health Questionnaire-9 Score 13 10/11/2023 Last PHQ-9: Questionnaire Data Not on file 0 10/11/2023 Housing Stability Answer Date Recorded What is [...] Answer Date Recorded Patient Health Questionnaire-2 Score 2 10/11/2023 Comments No Sex and Gender Information Value Date Recorded Sex Assigned at Female 05/14/2022 10:19 AM EDT Legal Sex Female 10:19 AM EDT Gender Identity Female 05/14/2022 10:19 AM EDT Sexual Orientation Straight 05/14/2022 10 :19 AM EDT documented as of this encounter Miscellaneous Notes * Telephone Encounter - Toshia Cole RN - 01/21/2024 1:26 PM EDT T/C to pt. For below message, pt. Is still looking for referral for PT, ( notes is not completed ).Pt. Also looking for work notes for absent from work from date 12/26 to 01/25 and return to work after 01/26/2024. Pt. Has excuse notes ( absent for work ) on file only for 12/26. Please review and advise. * Telephone Encounter - Estefanía Ramesh - 01/21/2024 1:15 PM EDT Tc from pt requesting status on referral for physical therapy. Pt is also requesting an excuse letter for work, to go back, pt informs has not been in work since last visit with provider. * Telephone Encounter - Toshia Cole RN - 01/14/2024 11:06 AM EDT Please review below request from pt. * Telephone Encounter - Abbey Perez - 01/14/2024 10:57 AM EDT This message goes to PCP. Community Service Aide cannot proceed with referral unless referring provider completes notes. Please sent to correct pool. * Telephone Encounter - Toshia Cole RN - 01/14/2024 10:23 AM EDT Please review and advise for below message. * Telephone Encounter - Dany Perez - 01/14/2024 9:48 AM EDT Tc from patient requesting the status of PT commercial loan underwriter did inform the patient the referral for PT has been canceled by the Tugboat Captain due to incomplete notes patient states needs this referral as soon as possible documented in this encounter Plan of Treatment Upcoming Encounters Date Type Department Care Team (Late st Contact Info) Description 07/26/2025 1:00 PM EST Office Visit [facility] OPTOMETRY [address] [place] [address] Carmen Staples, OD [address] [place] [address] documented as of this encounter Visit Diagnoses Not on filedocumented in this encounter Additional Health Concerns Assessment Noted Time PHQ-9 Depression Total Score: 13 024 10:50 AM EDT documented as of this encounter Care Teams Hydroelectric Production Manager Relationship Specialty Start Date End Date Lexie Ashley NP [address] [place] [address] PCP - General Family Medicine 10/6/23 documented as of this encounter
--- OUTSIDE RECORDS SUMMARY | 2025-04-03 08:08 | XMS_ITS | Encounter Summary ---
Author Organization [employer] Address [address] [place] [address] 7 [place] [address] Care Team Providers Care Telephone Solicitor Supervisor Name Role Phone Brooke Wilder RFID SPECIALIST Primary Care Provider Lexie Hinojosa NP Primary Care Provider [phone] Reason for Visit * Reason Comments Med Refill Encounter Details Date Type Department Care Team (Late st Contact Info) Description 10/13/2022 Refill [facility] [address] [place] [address] Joanna Pal CNM [address] [place] [address] Dysmenorrhea Social History Tobacco Use Types Packs/Day Years Used Date Smoking Tobacco: Never Smokeless Tobacco: Never Alcohol Use Standard Drinks/Week Comments Never 0 (1 standard drink = 0.6 oz pur e alcohol) Comments No Sex and Gender Information Value [...] Description 07/26/2025 1:00 PM EST Office Visit [facility] OPTOMETRY [address] [place] [address] Carmen Staples, OD [address] [place] [address] documented as of this encounter Visit Diagnoses Diagnosis Dysmenorrhea documented in this encounter Care Teams Telephone Solicitor Supervisor Relationship Specialty Start Date End Date Brooke Wilder FNP PCP - General Family Medicine 09/06/22 04/18/23 Lexie Ashley NP [address] [place] [address] PCP - General Family Medicine 04/19/23 documented as of this encounter
--- OUTSIDE RECORDS SUMMARY | 2025-04-03 08:08 | XMS_ITS | Encounter Summary ---
Author Organization [employer] Address [address] [facility] 7 [place] [address] Care Team Providers Care Certified Medical Biller Name Role Phone Yusefcelina Lexie ELLER Primary Care Provider [phone] Reason for Visit * Reason Onset Date Comments Med Refill 10/17/2023 Encounter Details Date Type Department Care Team (Late st Contact Info) Description 10/17/2023 Refill [facility] MED[facility]INE [address] [place] [address] Joanna Pal CNM [address] [place] [address] Dysmenorrhea Social History Tobacco Use Types Packs/Day [...] Description 07/26/2025 1:00 PM EST Office Visit [facility] OPTOMETRY [address] [place] [address] JhoanCarmen domingo, OD [address] [place] [address] documented as of this encounter Visit Diagnoses Diagnosis Dysmenorrhea documented in this encounter Additional Health Concerns Assessment Noted Time PHQ-9 Depression Total Score: 13 024 10:50 AM EDT documented as of this encounter Care Teams Certified Medical Biller Relationship Specialty Start Date End Date Lexie Ashley NP [address] [place] [address] PCP - General Family Medicine 04/19/23 documented as of this encounter
--- OUTSIDE RECORDS SUMMARY | 2025-04-03 08:08 | XMS_ITS | Encounter Summary ---
Author Organization [employer] Address [address] [facility] 7 [place] [address] Care Team Providers Care Welder Manufacture Name Role Phone Lexie Ashley NP Primary Care Provider [phone] Reason for Visit * Reason Comments Med Refill Encounter Details Date Type Department Care Team ([facility] st Contact Info) Description 08/05/2024 Refill [facility] MEDICINE [address] [place], [place] [phone] Lexie Ashley NP [address] [place] [address] Amenorrhea Social History Tobacco Use Types Packs/Day Years [...] Answer Date Recorded Patient Health Questionnaire-9 Score 5 04/24/2024 Patient Health Questionnaire-9 Score 5 04/24/2024 Last PHQ-9: Questionnaire Data Not on file 1 Housing Stability Answer Date Recorded What is [...] Date Recorded Patient Health Questionnaire-2 Score 0 04/24/2024 Comments No Sex and Gender Information Value [...] Description 07/26/2025 1:00 PM EST Office Visit [facility] OPTOMETRY [address] [place] [address] Jhoan, Carmen, OD [address] [place] [address] documented as of this encounter Visit Diagnoses Diagnosis Amenorrhea Absence of menstruation documented in this encounter Additional Health Concerns Assessment Noted Time PHQ-9 Depression Total Score: 5 04/24/20 24 10:18 AM EDT documented as of this encounter Care Teams Welder Manufacture Relationship Specialty Start Date End Date Lexie Ashley NP [address] [place] [address] PCP - General Family Medicine 04/19/23 documented as of this encounter
--- OUTSIDE RECORDS SUMMARY | 2025-04-03 08:09 | XMS_ITS | Encounter Summary ---
Author Organization [employer] Address [address] [facility] 7t [place] [address] Care Team Providers Care Professor Of Graphic Design Name Role Phone Yusefcelina Lexie DAPHNIE Primary Care Provider [phone] Encounter Details Date Type Department Care Team ([facility] st Contact Info) Description 03/30/2025 Telephone [facility] OPTOMETRY [address] [place] [address] Jhoan, Carmen, OD [address] [place] [address] Social History Tobacco Use Types Packs/Day Years [...] Description 07/26/2025 1:00 PM EST Office Visit [facility] OPTOMETRY [address] [place] [address] Carmen Staples OD [address] [place] [address] documented as of this encounter Visit Diagnoses Not on filedocumented in this encounter Additional Health Concerns Assessment Noted Time PHQ-9 Depression Total Score: 8 09/17/19 25 10:00 AM EST documented as of this encounter Care Teams Professor Of Graphic Design Relationship Specialty Start Date End Date Lexie Ashley NP [address] [place] [address] PCP - General Family Medicine 04/19/23 documented as of this encounter
[2025-04-03 08:17] LABS: IDNOW Serial# 152EDE1D; Strep A Nucleic Acid Negative (Negative)
[2025-04-03 08:44] VITALS: O2SAT 100
[2025-04-03 08:45] LABS: Resp Syncy Virus RNA Qual PCR NEGATIVE (Negative); SARS COV2 PCR INHOUSE NEGATIVE (Negative)
[2025-04-03 09:01] VITALS: BP 110/86; PULSE 86; RESP 18; TEMP 36.7; O2SAT 100
== END 2025-04-03 09:02 | disposition home or self-care (01) ==
PROVIDERS: Emergency Provider Emergency Medicine; PCP Nurse Practitioner
DX: J32.9 Chronic sinusitis, unspecified (principal); J02.9 Acute pharyngitis, unspecified; R09.81 Nasal congestion; R05.9 Cough, unspecified; Z03.818 Encounter for observation for suspected exposure to other biological agents ruled out
CPT/HCPCS: 87637; 87651; 99283; 99284

== ENCOUNTER 2025-06-18 07:19 | Emergency (ER) | payer MEDICAID, SELFPAY ==
[2025-06-18 07:24] VITALS: BP 151/89; PULSE 92; RESP 18; TEMP 36.4; O2SAT 97; BMI 38.0
--- NOTE | 2025-06-18 07:41 | ED_ITS ---
HPI - General Adult General Chief complaint: Skin/Abscess/Foreign Body Stated complaint: general medical Time Seen by Provider: 06/18/25 07:34 Source: patient and family Mode of arrival: ambulatory Limitations: no limitations History of Present Illness ED Provider: STEHPANIE Morales HPI narrative: Chief Complaint: ?Possible cyst under my left breast that started a few days ago.? History of Present Illness: The patient presents with a first-time, painful lump beneath the left breast that began a few days ago ( about 2 days). She describes the area as sore with progressive discomfort. Also reports burning. No prior similar episodes. No associated fevers, chills, nausea, or vomiting. No attempted self-treatment. Related Data Previous Rx's ?Medication ?Instructions ?Recorded cyclobenzaprine 5 mg tablet 5 mg PO TID PRN muscle spa sm #10 12/16/23 tabs lidocaine 5 % topical patch 1 patch topical DAILY #15 ea 12/16/23 prednisone 20 mg tablet 40 mg (2 x 20 mg) PO DAILY # 10 tabs 12/16/23 indomethacin 25 mg capsule 25 mg PO BID back pain #60 caps 12/19/23 azithromycin 250 mg tablet See Rx Instructions PO .COM PLEX #6 04/03/25 (Zithromax Z-Raman) tabs cephalexin 500 mg tablet 500 mg PO Q6H 10 days #40 ta bs 06/18/25 doxycycline hyclate 100 mg capsule 100 mg PO BID 10 da ys #20 caps 06/18/25 Allergies Allergy/AdvReac Type Severity Reaction Status Date / Time No Known Allergies (No Known Allergy Verified 06/18/25 07:27 Allergies*) Review of Systems Review of Systems: Yes all other systems are reviewed and are negative PMFSH Past Medical History Attestation statement: The following information was validated with the patient. Source: old records reviewed and nursing notes reviewed Social History Social History Do you have a plan to hurt others: No Plan Physical Exam ED Exam Exam: Appearance: Alert.? Oriented X3.? No acute distress.? Head: Normocephalic, atraumatic, no step-offs or deformities Eyes: Pupils equal, round and reactive to light.? Neck: Normal inspection.? Neck supple.? CVS: Normal pulses Respiratory: No respiratory distress.? Skin: Skin warm and dry.? Normal skin color.? Normal skin turgor.?+ Left breast: Small, palpable subcutaneous lesion at the 6 o?clock position inferior to the breast mound. Area mildly indurated, warm, and tender; consistent with superficial skin infection with developing abscess. No fluctuance at this time. Extremities: No lower extremity edema.? No calf ttp. 5/5 strength to bilateral upper and lower extremities Neuro: Oriented X 3.? No motor deficit.? No sensory deficit. CN 2-12 intact Vital Signs: Vital Signs - 24 hr 06/18/25 07:24 Temperature 97.5 F Pulse Rate 92 Respiratory Rate 18 Blood Pressure 151/89 H Pulse Oximetry 97 Oxygen Delivery Method Room Air BMI result Body Mass Index 38.0 vss Course Reevaluation(s) Reevaluation #1: Educated patient on diagnosis and treatment plan, answered all question, patient verbalizes understanding. At this time patient will be discharged home, advised to return with new or worsening symptoms. Educated on worrisome signs and symptoms and when to return. At this time I feel comfortable discharge home. Time: 07:47 Reevaluation #2: I did not do labs on patient no signs of systemic illness no fevers or chills vital signs are stable no tachycardia or fever. Medical Decision Making Medical Decision Making [facility] Narrative: [phone] Superficial skin infection / developing abscess under left breast. Not quite fluctuant yet no indication for drainage Problem #1: Left breast cellulitis with evolving abscess Assessment: Small superficial skin infection with early abscess formation; currently non-fluctuant, located at 6 o?clock position under left breast. No systemic symptoms. Plan: * Pharmacologic therapy: * Cephalexin (Keflex) 500 mg orally every 6 hours for 7 days. * Doxycycline 100 mg orally twice daily for 7 days. * Local care: Warm, wet towel compresses to the affected area to encourage spontaneous drainage. * Precautions: * Do NOT attempt self-drainage. * Return to ED/clinic if the area softens, enlarges, pain worsens, or systemic symptoms (fever, chills, nausea, vomiting) develop, as incision and drainage may become necessary. * Work excuse note provided for a few days per patient request. Differential Diagnosis Differential Diagnoses: The differential diagnosis associated with the presentation includes Differential Diagnosis for Left Breast Lesion: * Superficial skin infection/cellulitis with evolving abscess (most likely): Painful, indurated, subcutaneous lesion with mild warmth and tenderness, no fluctuance, and no systemic symptoms; first episode, located under the breast. * Epidermal inclusion cyst: May present as a subcutaneous nodule, but typically less acutely painful and less likely to be inflamed unless secondarily infected. * Infected sebaceous cyst: Can cause a tender, indurated lump, especially if ruptured or infected; clinical overlap with abscess. * Early hidradenitis suppurativa: Usually presents as painful nodules in intertriginous areas; less likely given single lesion and no prior history. * Breast abscess (primary): Typically occurs in lactating women but can rarely present in non-lactating patients; would expect more fluctuation and possibly systemic symptoms. * Mastitis: Inflammation of breast tissue, usually in lactating women; less likely in this age and non-lactating status. * Fat necrosis: May present as a firm, tender lump, often following trauma; no history of trauma reported. * Malignancy: Very unlikely given age, acute presentation, and clinical findings, but should be considered for completeness. Admission/Observation Consideration of admission/observation: Escalation of care including admiss ion/observation considered Lab Data No indication Independent Historian Clinical information obtained from an independent historian. History obtained from or confirmed by: Parent External Record Review External record reviewed: Outpatient record and Prior outpatient radiology Prescription Management I considered prescription management with: Antibiotic Chronic Conditions Patient?s care impacted by: Other (obesity ) Discharge Plan Discharge Clinical Impression: Cellulitis of breast Patient Disposition: Home, Self-Care Instructions: Cellulitis (ED), Warm Compress or Soak (ED) Prescriptions: New doxycycline hyclate 100 mg capsule 100 mg PO BID 10 Days Qty: 20 0RF cephalexin 500 mg tablet 500 mg PO Q6H 10 Days Qty: 40 0RF No Action indomethacin 25 mg capsule 25 mg PO BID Qty: 60 0RF Rx Instructions: administer with food or milk can take 1 to 2 tabs cyclobenzaprine 5 mg tablet 5 mg PO TID PRN (Reason: muscle spasm) Qty: 10 0RF prednisone 20 mg tablet 40 mg PO DAILY Qty: 10 0RF lidocaine 5 % adhesive patch,medicated 1 patch topical DAILY Qty: 15 0RF Rx Instructions: leave on most painful area for up to 12 hrs azithromycin [Zithromax Z-Raman] 250 mg tablet See Rx Instructions .ROUTE .COMPLEX Qty: 6 0RF Rx Instructions: For 250 mg dose pack: take 500 mg today (day 1), then 250 mg for 4 days (days 2-5) Referrals: Lexie Ashley [Primary Care Provider, Internal Medicine] Stand Alone Forms: Work/School Release Print Language: Indian
--- OUTSIDE RECORDS SUMMARY | 2025-06-18 07:58 | XMS_ITS | Encounter Summary ---
Author Organization [employer] Address [address] [facility] 7t [place] [address] Care Team Providers Care Rubber Trimmer Name Role Phone Yusefcelina Lexie ELLER Primary Care Provider [phone] Reason for Visit * Reason Comments Med Refill Encounter Details Date Type Department Care Team (Late st Contact Info) Description 09/08/2023 Refill [facility] [address] [place], [place] [phone] Joanna Pal CNM [address] [place] [address] Dysmenorrhea Social History Tobacco Use Types Packs/Day [...] Care Team (Late st Contact Info) Description 07/23/2025 9:45 AM EST Office Visit [facility] [address] [place] [address] Lexie Ashley NP [address] [place] [address] 07/26/2025 1:00 PM EST Office Visit [facility] OPTOMETRY [address] [place] [address] Jhoan, Carmen, OD [address] [place] [address] documented as of this encounter Visit Diagnoses Diagnosis Dysmenorrhea documented in this encounter Additional Health Concerns Assessment Noted Time PHQ-9 Depression Total Score: 20 023 11:33 AM EDT documented as of this encounter Care Teams Rubber Trimmer Relationship Specialty Start Date End Date Lexie Ashley NP [address] [place] [address] PCP - General Family Medicine 04/19/23 documented as of this encounter
--- OUTSIDE RECORDS SUMMARY | 2025-06-18 08:01 | XMS_ITS | Encounter Summary ---
Author Organization [employer] Address [address] [place] [address] [place] [address] Care Team Providers Care Arbor End Mainspring Former Name Role Phone Brooke Wilder WASH MILL OPERATOR Primary Care Provider Lexie Hinojosa NP Primary Care Provider [phone] Reason for Visit * Reason Onset Date Comments Med Refill 04/11/2023 Encounter Details Date Type Department Care Team (Late Contact Info) Description 04/11/2023 Refill [facility] [address] [place] [address] Brooke Wilder FNP Encounter for surveillance of [...] Department Care Team (Late Contact Info) Description 07/23/2025 9:45 AM EST Office Visit [facility] [address] [place] [address] Lexie Ashley NP [address] [place] [address] 07/26/2025 1:00 PM EST Office Visit [facility] OPTOMETRY [address] [place], [place] [phone] Carmen Staples, DECLAN [address] [place] [address] documented as of this encounter Visit Diagnoses Diagnosis Encounter for surveillance of transdermal patch hormonal contraceptive device Dysmenorrhea documented in this encounter Additional Health Concerns Assessment Noted Time PHQ-9 Depression Total Score: 20 023 11:33 AM EDT documented as of this encounter Care Teams Arbor End Mainspring Former Relationship Specialty Start Date End Date Brooke Wilder FNP PCP - General Family Medicine 09/06/22 04/18/23 Lexie Ashley NP [address] [place], [place] [phone] PCP - General Family Medicine 04/19/23 documented as of this encounter
--- OUTSIDE RECORDS SUMMARY | 2025-06-18 08:02 | XMS_ITS | Encounter Summary ---
Author Organization [employer] Address [address] [place] [address] 7 [place] [address] Care Team Providers Care Admitted Attorneys Name Role Phone Lexie Ashley NP Primary Care Provider Reason for Visit * Reason Onset Date Comments Referral 01/14/2024 Encounter Details Date Type Department Care Team ([facility] st Contact Info) Description 01/14/2024 Telephone [facility] [address] [place], [place] [phone] Lexie Ashley NP [address] [place] [address] Referral Social History Tobacco Use Types Packs/Day [...] AM EDT This message goes to PCP. Electronic Court Recorder cannot proceed with referral unless referring provider completes notes. Please sent to correct pool. * Telephone Encounter - Toshia Cole RN - 01/14/2024 10:23 AM EDT Please review and advise for below message. * Telephone Encounter - Dany Perez - 01/14/2024 9:48 AM EDT Tc from patient requesting the status of PT proposal lead writer did inform the patient the referral for PT has been canceled by the X Ray Tech due to incomplete notes patient states needs this referral as soon as possible documented in this encounter Plan of Treatment Upcoming Encounters Date Type Department Care Team (Late st Contact Info) Description 07/23/2025 9:45 AM EST Office Visit [facility] [address] [place] [address] Lexie Ashley NP [address] [place] [address] 07/26/2025 1:00 PM EST Office Visit [facility] OPTOMETRY [address] [place] [address] Carmen Staples OD [address] [place] [address] documented as of this encounter Visit Diagnoses Not on filedocumented in this encounter Additional Health Concerns Assessment Noted Time PHQ-9 Depression Total Score: 13 024 10:50 AM EDT documented as of this encounter Care Teams Admitted Attorneys Relationship Specialty Start Date End Date Lexie Ashley NP [address] [place] [id number] PCP - General Family Medicine 04/19/23 documented as of this encounter
--- OUTSIDE RECORDS SUMMARY | 2025-06-18 08:02 | XMS_ITS | Encounter Summary ---
Author Organization [employer] Address [address] [facility] 7 [place] [address] Care Team Providers Care Field Crew Chief Name Role Phone Yusefcelina Lexie DAPHNIE Primary Care Provider [phone] Reason for Visit * Reason Onset Date Comments Med Refill 10/17/2023 Encounter Details Date Type Department Care Team (Late st Contact Info) Description 10/17/2023 Refill [facility] [address] [place] [address] Joanna Pal CNM [address] [place] [address] Dysmenorrhea Social History Tobacco Use Types Packs/Day [...] Description 07/23/2025 9:45 AM EST Office Visit [facility] [address] [place] [address] Lexie Ashley NP [address] [place] [address] 07/26/2025 1:00 PM EST Office Visit [facility] OPTOMETRY [address] [place] [address] Jhoan, Carmen, OD [address] [place] [address] documented as of this encounter Visit Diagnoses Diagnosis Dysmenorrhea documented in this encounter Additional Health Concerns Assessment Noted Time PHQ-9 Depression Total Score: 13 024 10:50 AM EDT documented as of this encounter Care Teams Field Crew Chief Relationship Specialty Start Date End Date eLxie Ashley NP [address] [place] [address] PCP - General Family Medicine 04/19/23 documented as of this encounter
--- OUTSIDE RECORDS SUMMARY | 2025-06-18 08:02 | XMS_ITS | Encounter Summary ---
Author Organization [employer] Address [address] [place] [address] 7 [place] [address] Care Team Providers Care Staff Interpreter Name Role Phone Brooke Wilder TIERCE FILLER Primary Care Provider Lexie Hinojosa NP Primary Care Provider [phone] Reason for Visit * Reason Comments Med Refill Encounter Details Date Type Department Care Team (Late st Contact Info) Description 10/13/2022 Refill [facility] [address] [place] [address] Joanna Pal CNM [address] [place] [address] Dysmenorrhea Social History Tobacco Use Types Packs/Day [...] Description 07/23/2025 9:45 AM EST Office Visit [facility] [address] [place] [address] Lexie Ashley NP [address] [place] [address] 07/26/2025 1:00 PM EST Office Visit [facility] OPTOMETRY [address] [place] [address] Carmen Staples, OD [address] [place], [place] [phone] documented as of this encounter Visit Diagnoses Diagnosis Dysmenorrhea documented in this encounter Care Teams Staff Interpreter Relationship Specialty Start Date End Date Brooke Wilder FNP PCP - General Family Medicine 09/06/22 04/18/23 Lexie Ashley NP [address] [place] [address] PCP - General Family Medicine 04/19/23 documented as of this encounter
--- OUTSIDE RECORDS SUMMARY | 2025-06-18 08:02 | XMS_ITS | Encounter Summary ---
Author Organization [employer] Address [address] [place] [address] [place] [address] Care Team Providers Care Metal Smelter Name Role Phone Brooke Wilder SCIENTIFIC PROGRAMMER ANALYST Primary Care Provider Lexie Hinojosa NP Primary Care Provider [phone] Reason for Visit * Reason Onset Date Comments Med Refill 04/17/2023 Encounter Details Date Type Department Care Team (Late Contact Info) Description 04/17/2023 Refill [facility] [address] [place] [address] Brooke Wilder FNP Encounter for surveillance of [...] Description 07/23/2025 9:45 AM EST Office Visit [facility] [address] [place] [address] Lexie Ashley NP [address] [place] [address] 07/26/2025 1:00 PM EST Office Visit [facility] [address] [place], [place] [phone] Carmen Staples, DECLAN [address] [place] [address] documented as of this encounter Visit Diagnoses Diagnosis Encounter for surveillance of transdermal patch hormonal contraceptive device Dysmenorrhea documented in this encounter Additional Health Concerns Assessment Noted Time PHQ-9 Depression Total Score: 20 023 11:33 AM EDT documented as of this encounter Care Teams Metal Smelter Relationship Specialty Start Date End Date Brooke Wilder FNP PCP - General Family Medicine 09/06/22 04/18/23 Lexie Ashley NP [address] [place], [place] [phone] PCP - General Family Medicine 04/19/23 documented as of this encounter
--- OUTSIDE RECORDS SUMMARY | 2025-06-18 08:02 | XMS_ITS | Encounter Summary ---
Author Organization [employer] Address [address] [facility] 7 [place] [address] Care Team Providers Care Systems Programmer Analyst Name Role Phone Lexie Ashley NP Primary Care Provider [phone] Reason for Visit * Reason Comments Med Refill Encounter Details Date Type Department Care Team ([facility] st Contact Info) Description 08/05/2024 Refill [facility] [address] [place], [place] [phone] Lexie Ashley NP [address] [place] [address] Amenorrhea Social History Tobacco Use Types Packs/Day [...] Description 07/23/2025 9:45 AM EST Office Visit [facility] [address] [place] [address] Lexie Ashley NP [address] [place] [address] 07/26/2025 1:00 PM EST Office Visit [facility] OPTOMETRY [address] [place] [address] Jhoan, Carmen, OD [address] [place] [address] documented as of this encounter Visit Diagnoses Diagnosis Amenorrhea Absence of menstruation documented in this encounter Additional Health Concerns Assessment Noted Time PHQ-9 Depression Total Score: 5 04/24/20 24 10:18 AM EDT documented as of this encounter Care Teams Systems Programmer Analyst Relationship Specialty Start Date End Date Lexie Ashley NP [address] [place] [address] PCP - General Family Medicine 04/19/23 documented as of this encounter
[2025-06-18 08:05] VITALS: BP 147/86; PULSE 85; RESP 18; TEMP 36.3; O2SAT 97
== END 2025-06-18 08:00 | disposition home or self-care (01) ==
PROVIDERS: Emergency Provider Emergency Medicine; PCP Nurse Practitioner
DX: N61.0 Mastitis without abscess (principal); N64.4 Mastodynia
CPT/HCPCS: 99282